=== PATIENT | male | born 1950 | race Caucasian/White ===

== ENCOUNTER → 2021-09-01 06:54 | Outpatient (CLI) | payer OTHER, SELFPAY ==
[2021-09-01 08:04] LABS: Alanine Aminotransferase 31 IU/L (<50); Albumin Globulin Ratio 1.5 (1.0-2.8); Alkaline Phosphatase 77 U/L (38-126); Aspartate Aminotransferase 38 IU/L (17-59); BUN Creatinine Ratio 22.9 (6-22); Bilirubin Total 0.9 mg/dL (0.2-1.3); Blood Urea Nitrogen 22 mg/dL (9-20); Calcium 9.1 mg/dL (8.4-10.2); Carbon Dioxide 26 mmol/L (22-32); Chloride 101 mmol/L (98-107); Cholesterol 158 mg/dL (140-199); Estimated Glomerular Filt Rate > 60 mL/min (>60); Globulin 2.6 g/dL (1.7-4.1); Glucose 78 mg/dL (80-110); HDL Cholesterol 92 mg/dL (40-60); LDL Cholesterol Calculated 54 mg/dL (<100); Potassium 4.4 mmol/L (3.4-5.1); Sodium 136 mmol/L (137-145); Total Protein 6.6 g/dL (6.3-8.2); Triglycerides 62 mg/dL (35-150)
[2021-09-02] LABS: HEMOLYSIS < 15 (0-50); Prostate Specific Antigen 8.95 ng/mL (0.10-4.00)
== END ==
PROVIDERS: PCP Internal Medicine; Referring Provider Internal Medicine; Visit Provider Internal Medicine
DX: C61 Malignant neoplasm of prostate (principal); E78.2 Mixed hyperlipidemia; I10 Essential (primary) hypertension
CPT/HCPCS: 36415; 80053; 80061; 84153

== ENCOUNTER → 2022-03-22 07:01 | Outpatient (CLI) | payer MEDICARE, SELFPAY ==
[2022-03-22 07:57] LABS: Alanine Aminotransferase 31 IU/L (<50); Albumin 4.3 g/dL (3.5-5.0); Albumin Globulin Ratio 1.6 (1.0-2.8); Alkaline Phosphatase 82 U/L (38-126); Aspartate Aminotransferase 35 IU/L (17-59); BUN Creatinine Ratio 19.8 (6-22); Bilirubin Total 1.1 mg/dL (0.2-1.3); Blood Urea Nitrogen 19 mg/dL (9-20); Calcium 9.2 mg/dL (8.4-10.2); Carbon Dioxide 29 mmol/L (22-32); Chloride 95 mmol/L (98-107); Cholesterol 160 mg/dL (140-199); Estimated Glomerular Filt Rate > 60 mL/min (>60); Globulin 2.7 g/dL (1.7-4.1); Glucose 97 mg/dL (80-110); HDL Cholesterol 94 mg/dL (40-60); HEMOLYSIS < 15 (0-50); LDL Cholesterol Calculated 55 mg/dL (<100); Potassium 3.9 mmol/L (3.4-5.1); Sodium 132 mmol/L (137-145); Triglycerides 55 mg/dL (35-150)
[2022-03-22 08:27] LABS: Prostate Specific Antigen 10.4 ng/mL (0.10-4.00)
== END ==
PROVIDERS: PCP Internal Medicine; Referring Provider Internal Medicine; Visit Provider Internal Medicine
DX: E78.2 Mixed hyperlipidemia (principal); C61 Malignant neoplasm of prostate; I10 Essential (primary) hypertension
CPT/HCPCS: 36415; 80053; 80061; 84153

== ENCOUNTER → 2022-05-31 15:47 | Outpatient (CLI) | payer MEDICARE, SELFPAY ==
--- NOTE | 2022-05-31 15:48 | DI.MRI.S_ITS ---
PROCEDURE: MR PELVIC PROSTATE PROTOCOL INDICATIONS: Rising PSA prostate cancer TECHNIQUE: Coronal HASTE, axial T1 FSE with fat saturation, 3-plane nonbreath-hold T2 FSE. After the administration of contrast, dynamic axial, delayed axial and coronal VIBE or 2-D FLASH with fat saturation through the pelvis. Optional diffusion weighted imaging and ADC may be performed. COMPARISON: None. FINDINGS: Image quality: Diffusion-weighted images are nondiagnostic due to hip arthroplasty artifact. Dynamic post-contrast images are significantly degraded by artifact. Prostate: Gland size is 4.6 x 3.1 x 5.4 cm; ellipsoid gland volume is 40 mL. Mild linear and indistinct T2 hypointensities present within the prostate peripheral zone (PI-RADS 2 findings). In the transition zone, no large lesion strongly stands out against background parenchymal changes of BPH on T2 weighted images (PI-RADS 2 findings). Genitourinary system: Bladder wall thickness is normal. Distal ureters are non distended. Bowel and peritoneum: No pathologic free pelvic fluid. Inferior colon and small bowel loops are normal in caliber. Nodes and vessels: No pelvic or inguinal adenopathy identified by size criteria, however hip arthroplasty artifact limits evaluation. Iliac vessels are normal in caliber. Bones: Bilateral hip arthroplasty. IMPRESSION: 1. Limited examination due to artifact from hip arthroplasty hardware. Diffusion-weighted images are nondiagnostic. 2. No large or highly suspicious focal prostate lesion identified on T2 weighted images. 3. No suspicious lymph nodes identified in the imaged pelvis. Dictated by: Rober Luciano M.D. on 06/01/2022 at 8:15 Approved by: Rober Luciano M.D. on 06/01/2022 at 8:58
== END ==
PROVIDERS: PCP Internal Medicine; Referring Provider Urology; Visit Provider Urology
DX: C61 Malignant neoplasm of prostate (principal); R97.20 Elevated prostate specific antigen [PSA]; Z96.643 Presence of artificial hip joint, bilateral
CPT/HCPCS: 72197

== ENCOUNTER → 2022-06-03 09:44 | Outpatient (CLI) | payer MEDICARE, SELFPAY ==
[2022-06-03 11:15] LABS: Prostate Specific Antigen 10.1 ng/mL (0.10-4.00)
== END ==
PROVIDERS: PCP Internal Medicine; Referring Provider Urology; Visit Provider Urology
DX: C61 Malignant neoplasm of prostate (principal); R97.20 Elevated prostate specific antigen [PSA]
CPT/HCPCS: 36415; 84153; 99214

== ENCOUNTER → 2022-06-16 08:45 | Outpatient (CLI) | payer MEDICARE, SELFPAY ==
--- NOTE | 2022-06-16 08:48 | DI.NM.S_ITS ---
PROCEDURE: NM BONE SCAN WHOLE BODY RADIOPHARMACEUTICAL: 19.7 mCi Tc-99m MDP IV. INDICATIONS: Prostate cancer rising PSA TECHNIQUE: Delayed whole-body scintigrams were obtained approximately 3-4 hours after intravenous injection of radiotracer. Anterior and posterior views were acquired from vertex to feet. Additional left and right oblique views of the pelvis were obtained. COMPARISON: [facility], MR, MR PELVIC PROSTATE PROTOCOL, 05/31/2022, 16:33. [facility], CT, CT ABDOMEN PELVIS W CON, 06/16/2022, 10:28. FINDINGS: No abnormal uptake of radiotracer is seen within the bones of the calvarium or bones of the face. No abnormal radiotracer uptake is seen within the cervical spine, thoracic spine, or lumbar spine. No abnormal uptake of radiotracer is seen within the sternum. No abnormal rib uptake is seen. A mild degree of symmetric uptake is seen within the region of the shoulders, right worse than left, which is attributed to degenerative change and is not considered to be pathologic. No abnormal uptake is seen within the upper extremities. No abnormal uptake is seen within the pelvis or within the lower extremities. No abnormal soft tissue uptake is seen. The kidneys demonstrate normal positions. IMPRESSION: No suspicious findings of bony metastatic disease. Dictated by: Jimenez Chowdary M.D. on 06/16/2022 at 15:18 Approved by: Jimenez Chowdary M.D. on 06/16/2022 at 15:18
--- NOTE | 2022-06-16 08:48 | DI.CT.S_ITS ---
PROCEDURE: CT ABDOMEN PELVIS W CON INDICATIONS: Prostate cancer rising PSA TECHNIQUE: After the administration of oral and intravenous contrast, axial sections were acquired from the lung bases to the pubic symphysis. Coronal and sagittal reformats were performed. For radiation dose reduction, the following was used: automated exposure control, adjustment of mA and/or kV according to patient size. COMPARISON:[facility], , MR PELVIC PROSTATE PROTOCOL, 05/31/2022, 16:33. FINDINGS: Lung bases: No pleural effusion. 3 mm right middle lobe pulmonary nodule (6/2). ABDOMEN: Liver: 7 mm soft tissue nodule along the posterior lateral margin of the liver (series 2, image 27, series 5, image 15). Gallbladder: Unremarkable. Biliary ducts: Unremarkable. Pancreas: Unremarkable. Spleen: Unremarkable. Adrenal Glands: Unremarkable. Kidneys and Ureters: No hydronephrosis. Left kidney cortical cysts are present without suspicious features identified. Stomach and Bowel: No bowel obstruction. Peritoneum: No abnormal intraperitoneal fluid. No free air. Abdominal Nodes: No retroperitoneal or mesenteric adenopathy by size criteria. Vessels: Aorta and inferior vena cava are normal in size. PELVIS: Pelvic Organs: Not well evaluated due to hip arthroplasty artifact, no overt abnormality identified. Bladder: Not well evaluated due to hip arthroplasty artifact, no overt abnormality identified. Pelvic Nodes: No enlarged lymph nodes. Bones: Multilevel degenerative change of the visualized spine. Bilateral hip arthroplasty. IMPRESSION: 1. No lymphadenopathy identified within the abdomen or pelvis. 2. Indeterminate 7 mm soft tissue nodule along the posterior lateral margin of the liver. The etiology and clinical significance of this finding is uncertain. Metastatic implant from known prostate cancer would be unusual in the absence of obvious metastatic disease elsewhere but cannot be excluded. Due to small size this finding may be difficult to characterize by any imaging modality. Could consider imaging follow-up as clinically indicated. 3. A 3 mm right middle lobe pulmonary nodule is present, indeterminate. Imaging follow-up can be obtained as clinically indicated. Dictated by: Rober Luciano M.D. on 06/16/2022 at 11:46 Approved by: Rober Luciano M.D. on 06/16/2022 at 12:10
[2022-06-16 09:41] LABS: Estimated Glomerular Filt Rate > 60 mL/min (>60)
== END ==
PROVIDERS: Radiology Diagnostic Radiology; PCP Internal Medicine; Referring Provider Urology; Visit Provider Urology
DX: C61 Malignant neoplasm of prostate (principal); R97.20 Elevated prostate specific antigen [PSA]; K76.9 Liver disease, unspecified; R91.1 Solitary pulmonary nodule
CPT/HCPCS: 36415; 74177; 78306; 82565; A9503; Q9967

== ENCOUNTER → 2022-09-21 06:56 | Outpatient (CLI) | payer MEDICARE, SELFPAY ==
[2022-09-21 08:45] LABS: Alanine Aminotransferase 32 IU/L (<50); Albumin 4.3 g/dL (3.5-5.0); Albumin Globulin Ratio 1.6 (1.0-2.8); Alkaline Phosphatase 112 U/L (38-126); Aspartate Aminotransferase 38 IU/L (17-59); BUN Creatinine Ratio 18.6 (6-22); Bilirubin Total 1.1 mg/dL (0.2-1.3); Blood Urea Nitrogen 16 mg/dL (9-20); Calcium 9.1 mg/dL (8.4-10.2); Carbon Dioxide 28 mmol/L (22-32); Chloride 98 mmol/L (98-107); Cholesterol 167 mg/dL (140-199); Estimated Glomerular Filt Rate > 60 mL/min (>60); Globulin 2.7 g/dL (1.7-4.1); Glucose 85 mg/dL (80-110); HDL Cholesterol 85 mg/dL (40-60); HEMOLYSIS < 15 (0-50); LDL Cholesterol Calculated 57 mg/dL (<100); Potassium 4.3 mmol/L (3.4-5.1); Sodium 134 mmol/L (137-145); Triglycerides 125 mg/dL (35-150)
[2022-09-21 09:14] LABS: Prostate Specific Antigen 10.2 ng/mL (0.10-4.00)
== END ==
PROVIDERS: PCP Internal Medicine; Referring Provider Internal Medicine; Visit Provider Internal Medicine
DX: E78.2 Mixed hyperlipidemia (principal); C61 Malignant neoplasm of prostate; I10 Essential (primary) hypertension
CPT/HCPCS: 36415; 80053; 80061; 84153

== ENCOUNTER → 2022-10-15 09:18 | Outpatient (CLI) | payer MEDICARE, SELFPAY ==
[2022-10-15 10:49] LABS: Prostate Specific Antigen 11.2 ng/mL (0.10-4.00)
== END ==
PROVIDERS: PCP Internal Medicine; Referring Provider Urology; Visit Provider Urology
DX: C61 Malignant neoplasm of prostate (principal); N40.1 Benign prostatic hyperplasia with lower urinary tract symptoms
CPT/HCPCS: 36415; 84153

== ENCOUNTER → 2022-11-21 10:15 | Outpatient (CLI) | payer MEDICARE, SELFPAY ==
--- NOTE | 2022-11-21 10:17 | DI.RAD.S_ITS ---
PROCEDURE: XR CHEST 2V INDICATIONS: Cough x 15 days TECHNIQUE: 2 views of the chest were acquired. COMPARISON: None. FINDINGS: Surgical changes and devices: None. Lungs and pleura: Lungs are clear. No pleural effusions or pneumothorax. Mediastinum: Mediastinal contours are normal. Heart size is normal. Bones and chest wall: No suspicious bony abnormalities. Soft tissues appear unremarkable. IMPRESSION: No acute cardiopulmonary abnormality is seen. Dictated by: Salvatore Santos M.D. on 11/21/2022 at 11:34 Approved by: Salvatore Santos M.D. on 11/21/2022 at 11:35
== END ==
PROVIDERS: PCP Internal Medicine; Referring Provider Physician Assistant; Visit Provider Physician Assistant
DX: R05.9 Cough, unspecified (principal)
CPT/HCPCS: 71046

== ENCOUNTER → 2023-01-31 07:02 | Outpatient (CLI) | payer MEDICARE, SELFPAY ==
[2023-01-31 09:20] LABS: Prostate Specific Antigen 9.96 ng/mL (0.10-4.00)
== END ==
PROVIDERS: PCP Internal Medicine; Referring Provider Urology; Visit Provider Urology
DX: N40.1 Benign prostatic hyperplasia with lower urinary tract symptoms (principal)
CPT/HCPCS: 36415; 84153

== ENCOUNTER → 2023-03-28 06:51 | Outpatient (CLI) | payer MEDICARE, SELFPAY ==
[2023-03-28 09:43] LABS: Alanine Aminotransferase 28 IU/L (<50); Albumin 4.1 g/dL (3.5-5.0); Albumin Globulin Ratio 1.7 (1.0-2.8); Alkaline Phosphatase 76 U/L (38-126); Aspartate Aminotransferase 34 IU/L (17-59); BUN Creatinine Ratio 24.4 (6-22); Blood Urea Nitrogen 21 mg/dL (9-20); Calcium 9.4 mg/dL (8.4-10.2); Carbon Dioxide 27 mmol/L (22-32); Chloride 99 mmol/L (98-107); Cholesterol 160 mg/dL (140-199); Estimated Glomerular Filt Rate > 60 mL/min (>60); Globulin 2.4 g/dL (1.7-4.1); Glucose 90 mg/dL (80-110); HDL Cholesterol 76 mg/dL (40-60); HEMOLYSIS < 15 (0-50); LDL Cholesterol Calculated 66 mg/dL (<100); Potassium 4.5 mmol/L (3.4-5.1); Sodium 134 mmol/L (137-145); Total Protein 6.5 g/dL (6.3-8.2); Triglycerides 90 mg/dL (35-150)
[2023-03-28 10:08] LABS: Prostate Specific Antigen 9.97 ng/mL (0.10-4.00)
== END ==
LOC: LAB 06:52
PROVIDERS: PCP Internal Medicine; Referring Provider Internal Medicine; Visit Provider Internal Medicine
DX: I10 Essential (primary) hypertension (principal); C61 Malignant neoplasm of prostate; E78.2 Mixed hyperlipidemia
CPT/HCPCS: 36415; 80053; 80061; 84153

== ENCOUNTER → 2023-06-15 06:46 | Outpatient (CLI) | payer MEDICARE, SELFPAY ==
[2023-06-15 09:29] LABS: Prostate Specific Antigen 10.2 ng/mL (0.10-4.00)
== END ==
PROVIDERS: PCP Internal Medicine; Referring Provider Urology; Visit Provider Urology
DX: C61 Malignant neoplasm of prostate (principal); N40.1 Benign prostatic hyperplasia with lower urinary tract symptoms
CPT/HCPCS: 36415; 84153

== ENCOUNTER → 2023-08-23 06:45 | Outpatient (CLI) | payer MEDICARE, SELFPAY ==
[2023-08-23 07:56] LABS: Alanine Aminotransferase 25 IU/L (<50); Albumin 4.3 g/dL (3.5-5.0); Albumin Globulin Ratio 1.8 (1.0-2.8); Alkaline Phosphatase 81 U/L (38-126); Aspartate Aminotransferase 30 IU/L (17-59); BUN Creatinine Ratio 24.7 (6-22); Bilirubin Total 1.2 mg/dL (0.2-1.3); Blood Urea Nitrogen 22 mg/dL (9-20); Calcium 9.1 mg/dL (8.4-10.2); Carbon Dioxide 28 mmol/L (22-32); Chloride 102 mmol/L (98-107); Cholesterol 171 mg/dL (140-199); Estimated Glomerular Filt Rate > 60 mL/min (>60); Globulin 2.4 g/dL (1.7-4.1); Glucose 90 mg/dL (80-110); HDL Cholesterol 91 mg/dL (40-60); HEMOLYSIS < 15 (0-50); LDL Cholesterol Calculated 61 mg/dL (<100); Potassium 4.4 mmol/L (3.4-5.1); Sodium 136 mmol/L (137-145); Total Protein 6.7 g/dL (6.3-8.2); Triglycerides 96 mg/dL (35-150)
[2023-08-23 08:22] LABS: Prostate Specific Antigen 9.59 ng/mL (0.10-4.00)
== END ==
LOC: LAB 06:46
PROVIDERS: PCP Internal Medicine; Referring Provider Internal Medicine; Visit Provider Internal Medicine
DX: R97.20 Elevated prostate specific antigen [PSA] (principal); I10 Essential (primary) hypertension; E78.2 Mixed hyperlipidemia
CPT/HCPCS: 36415; 80053; 80061; 84153

== ENCOUNTER → 2023-10-16 06:49 | Outpatient (CLI) | payer MEDICARE, SELFPAY ==
[2023-10-16 09:01] LABS: Prostate Specific Antigen 9.79 ng/mL (0.10-4.00)
== END ==
PROVIDERS: PCP Internal Medicine; Referring Provider Urology; Visit Provider Urology
DX: C61 Malignant neoplasm of prostate (principal); N40.1 Benign prostatic hyperplasia with lower urinary tract symptoms
CPT/HCPCS: 36415; 84153

== ENCOUNTER → 2023-10-25 08:26 | Outpatient (CLI) | payer MEDICARE, SELFPAY | PROVIDERS: PCP Internal Medicine; Visit Provider Urology | DX: N40.1 Benign prostatic hyperplasia with lower urinary tract symptoms (principal) | CPT/HCPCS: 87086 ==

== ENCOUNTER → 2024-01-09 07:59 | Outpatient (CLI) | payer MEDICARE, SELFPAY | PROVIDERS: PCP Internal Medicine; Referring Provider Urology; Visit Provider Urology | DX: C61 Malignant neoplasm of prostate (principal) | CPT/HCPCS: 36415; 84153 ==

== ENCOUNTER → 2024-02-19 08:28 | Outpatient (CLI) | payer MEDICARE, SELFPAY ==
[2024-02-19 09:13] LABS: Alanine Aminotransferase 34 IU/L (<50); Albumin 4.6 g/dL (3.5-5.0); Albumin Globulin Ratio 1.8 (1.0-2.8); Alkaline Phosphatase 92 U/L (38-126); Aspartate Aminotransferase 38 IU/L (17-59); BUN Creatinine Ratio 21.3 (6-22); Bilirubin Total 1.3 mg/dL (0.2-1.3); Blood Urea Nitrogen 23 mg/dL (9-20); Calcium 9.6 mg/dL (8.4-10.2); Carbon Dioxide 26 mmol/L (22-32); Chloride 101 mmol/L (98-107); Cholesterol 187 mg/dL (140-199); Estimated Glomerular Filt Rate > 60 mL/min (>60); Globulin 2.5 g/dL (1.7-4.1); Glucose 98 mg/dL (80-110); HEMOLYSIS < 15 (0-50); Potassium 4.6 mmol/L (3.4-5.1); Sodium 136 mmol/L (137-145); Total Protein 7.1 g/dL (6.3-8.2); Triglycerides 101 mg/dL (35-150)
[2024-02-19 09:24] LABS: HDL Cholesterol 111 mg/dL (40-60); LDL Cholesterol Calculated 56 mg/dL (<100)
[2024-02-19 09:42] LABS: Prostate Specific Antigen 11.1 ng/mL (0.10-4.00)
== END ==
PROVIDERS: PCP Internal Medicine; Referring Provider Internal Medicine; Visit Provider Internal Medicine
DX: E78.2 Mixed hyperlipidemia (principal); C61 Malignant neoplasm of prostate; I25.10 Atherosclerotic heart disease of native coronary artery without angina pectoris
CPT/HCPCS: 36415; 80053; 80061; 84153

== ENCOUNTER → 2024-04-16 08:36 | Outpatient (CLI) | payer MEDICARE, SELFPAY ==
[2024-04-16 10:46] LABS: Prostate Specific Antigen 12.5 ng/mL (0.10-4.00)
== END ==
PROVIDERS: PCP Internal Medicine; Referring Provider Urology; Visit Provider Urology
DX: N40.1 Benign prostatic hyperplasia with lower urinary tract symptoms (principal)
CPT/HCPCS: 36415; 84153

== ENCOUNTER → 2024-08-28 06:55 | Outpatient (CLI) | payer MEDICARE, SELFPAY ==
[2024-08-28 08:31] LABS: Prostate Specific Antigen 11.5 ng/mL (0.10-4.00)
== END ==
PROVIDERS: PCP Internal Medicine; Referring Provider Radiology Radiation Oncology; Visit Provider Radiology Radiation Oncology
DX: C61 Malignant neoplasm of prostate (principal)
CPT/HCPCS: 36415; 84153